=== PATIENT | female | born 1990 | race Caucasian/White ===

== ENCOUNTER 2017-02-02 08:27 | Emergency (ER) | payer OTHER ==
[~2017-02-02] VITALS: Ht 165.1 cm; Wt 84.0 kg
[~2017-02-02 08:27] MED LIST: AMOXICILLIN500 MG PO; CRYSELLE-2828 TABS PO; FERROUS SULF325 M3 PO; IBUPROFEN600 MG PO; LORTAB 5/3255 MG PO; MACRODANTIN100 MG PO; MOTRIN800 MG PO; NO; PRENATA9 PO; PROMETHAZINE25 MG PO; TORADOL PO; ULTRAM50 M1 PO; ZOFRAN ODT8 MG PO
[2017-02-02 09:09] LABS: HEMATOCRIT 39.6 % (37.0-47.0); IMMATURE GRANULOCYTES 0.3 % (0.0-1.0); MEAN CELL VOLUME 89.6 fL CALC (80.0-100.0); MEAN CORPUSCULAR HGB 29.4 pG CALC (26.0-32.0); MEAN CORPUSCULAR HGB CONC 32.8 g/L CALC (32.0-36.0); NEUT# 8.73 thou/uL (2.00-7.15); RED BLOOD COUNT 4.42 mill/uL (4.20-5.60); RED CELL DISTRI WIDTH 12.5 % (11.5-15.5)
[2017-02-02 09:18] LABS: ALBUMIN 4.1 g/dL (3.2-5.0); ALKALINE PHOSPHATASE 79 u/l (38-126); AMYLASE 44 u/l (30-110); ANION GAP 13 (6-22 (CALC)); BILIRUBIN, TOTAL 0.8 mg/dL (0.0-1.4); BUN 11 mg/dL (7-17); BUN/CREATININE RATIO 15 (12-20 (CALC)); CALCIUM 10.1 mg/dL (8.4-10.2); CARBON DIOXIDE 28 mmol/l (22-30); CHLORIDE 102 mmol/l (95-108); CREATININE 0.7 mg/dL (0.5-1.0); GFR > 60 ML/MIN (>=60 (CALC)); GFR FOR AFR.AMER. > 60 ML/MIN (>=60 (CALC)); GLUCOSE 92 mg/dL (65-105); LIPASE 39 u/l (23-300); POTASSIUM 3.6 mmol/l (3.5-5.1); SGOT/AST 65 u/l (14-36); SGPT/ALT 50 u/l (9-52); SODIUM 140 mmol/l (137-146); TOTAL PROTEIN 7.4 g/dL (6.3-8.2)
[2017-02-02 09:26] LABS: MYOGLOBIN 28 ng/mL (0 - 62)
[2017-02-02 11:01] LABS: URINE BILIRUBIN - DIPSTICK NEGATIVE (NEGATIVE); URINE BLOOD DIPSTICK NEGATIVE (NEGATIVE); URINE CLARITY CLEAR; URINE COLOR YELLOW; URINE GLUCOSE - DIPSTICK NEGATIVE (NEGATIVE); URINE KETONE NEGATIVE (NEGATIVE); URINE LEUK ESTERASE NEGATIVE (NEGATIVE); URINE NITRITE - DIPSTICK NEGATIVE (Negative); URINE PROTEIN - DIPSTICK NEGATIVE (NEG-TRACE)
[2017-02-02] MEDS ORDERED: NORCO1 TA1 PO (11:32)
[2017-02-02 11:41] VITALS: BP 125/87
== END 2017-02-02 11:47 | disposition home or self-care (01) | DRG 446 ==
LOC: ED 08:27
PROVIDERS: Emergency Medicine
DX: K80.50 Calculus of bile duct without cholangitis or cholecystitis without obstruction (principal); R06.02 Shortness of breath; R10.13 Epigastric pain; R07.9 Chest pain, unspecified
CPT/HCPCS: Q9967

== ENCOUNTER 2017-04-30 02:57 | Emergency (ER) | payer OTHER ==
[~2017-04-30] VITALS: Ht 165.1 cm; Wt 95.0 kg
[~2017-04-30 02:57] MED LIST changes: +NORCO1 TA1 PO
[2017-04-30] MEDS ORDERED: PRENATA3 PO (03:06)
[2017-04-30 04:00] LABS: URINE BLOOD DIPSTICK NEGATIVE (NEGATIVE); URINE CLARITY SLIGHT CLOUDY; URINE COLOR YELLOW; URINE GLUCOSE - DIPSTICK NEGATIVE (NEGATIVE); URINE KETONE NEGATIVE (NEGATIVE); URINE LEUK ESTERASE NEGATIVE (NEGATIVE); URINE NITRITE - DIPSTICK NEGATIVE (Negative); URINE PH 6.5 (4.5-8.0); URINE PROTEIN - DIPSTICK NEGATIVE (NEG-TRACE)
[2017-04-30 04:01] LABS: URINE BILIRUBIN - DIPSTICK SMALL (NEGATIVE)
[2017-04-30 04:03] LABS: HEMATOCRIT 34.6 % (37.0-47.0); HEMOGLOBIN 11.9 g/dl (12.0-16.0); IMMATURE GRANULOCYTES 0.5 % (0.0-1.0); MEAN CELL VOLUME 88.9 fL CALC (80.0-100.0); MEAN CORPUSCULAR HGB 30.6 pG CALC (26.0-32.0); MEAN CORPUSCULAR HGB CONC 34.4 g/L CALC (32.0-36.0); NEUT# 11.97 thou/uL (2.00-7.15); RED BLOOD COUNT 3.89 mill/uL (4.20-5.60); RED CELL DISTRI WIDTH 12.7 % (11.5-15.5)
[2017-04-30 04:13] LABS: ALBUMIN 3.8 g/dL (3.2-5.0); ALKALINE PHOSPHATASE 93 u/l (38-126); AMYLASE 33 u/l (30-110); ANION GAP 14 (6-22 (CALC)); BILIRUBIN, TOTAL 0.5 mg/dL (0.0-1.4); BUN 6 mg/dL (7-17); BUN/CREATININE RATIO 12 (12-20 (CALC)); CALCIUM 9.3 mg/dL (8.4-10.2); CARBON DIOXIDE 23 mmol/l (22-30); CHLORIDE 106 mmol/l (95-108); CREATININE 0.5 mg/dL (0.5-1.0); GFR > 60 ML/MIN (>=60 (CALC)); GFR FOR AFR.AMER. > 60 ML/MIN (>=60 (CALC)); GLUCOSE 79 mg/dL (65-105); LIPASE 28 u/l (23-300); POTASSIUM 3.8 mmol/l (3.5-5.1); SGOT/AST 18 u/l (14-36); SGPT/ALT 32 u/l (9-52); SODIUM 139 mmol/l (137-146); TOTAL PROTEIN 6.6 g/dL (6.3-8.2)
[2017-04-30 13:21] VITALS: BP 119/58
== END 2017-04-30 13:21 | disposition short-term general hospital (02) | DRG 781 ==
LOC: ED 02:57
PROVIDERS: Emergency Medicine
DX: O26.892 Other specified pregnancy related conditions, second trimester (principal); F17.210 Nicotine dependence, cigarettes, uncomplicated; R10.31 Right lower quadrant pain; O99.332 Smoking (tobacco) complicating pregnancy, second trimester; Z3A.15 15 weeks gestation of pregnancy

== ENCOUNTER 2017-10-23 07:40 | Inpatient (IN) | payer OTHER ==
[2017-10-23] VITALS (25 sets, daily range): BP systolic 99–140; BP diastolic 51–72
[~2017-10-23] VITALS: Ht 165.1 cm; Wt 96.6 kg
[~2017-10-23 07:40] MED LIST changes: +FERR SULFATE325 MG PO; +PRENATA3 PO
--- NOTE | 2017-10-23 07:50 | NUR ---
PT ARRIVED FROM HOME FOR NST WITH THE POSSIBILITY OF INDUCTION TODAY. HEIGHT/WEIGHT/UA/DOA OBTAINED. ASSISTED TO BED, EFM STARTED.
--- NOTE | 2017-10-23 08:12 | NUR ---
DR. GONZALES AT BEDSIDE, SVE DONE, -%/-3. MD DISCUSSED WITH PT ABOUT EITHER BEING INDUCED, OR GOING HOME AND WAIT FOR SPONTENAOUS LABOR, INCLUDING RISKS WITH INDUCTION. PT VERBALIZED UNDERSTANDING AND WISHES TO PROCEED WITH INDUCTION OF LABOR.
[2017-10-23 08:21] LABS: URINE BILIRUBIN - DIPSTICK NEGATIVE (NEGATIVE); URINE BLOOD DIPSTICK NEGATIVE (NEGATIVE); URINE COLOR YELLOW; URINE GLUCOSE - DIPSTICK NEGATIVE (NEGATIVE); URINE KETONE NEGATIVE (NEGATIVE); URINE NITRITE - DIPSTICK NEGATIVE (Negative); URINE PROTEIN - DIPSTICK NEGATIVE (NEG-TRACE); URINE SPECIFIC GRAVITY 1.025; URINE UROBILINOGEN - DIPSTICK 0.2 E.U./dL (0.2)
[2017-10-23 08:23] LABS: BARBITURATES NEGATIVE (NEGATIVE); COCAINE NEGATIVE (NEGATIVE); METHADONE NEGATIVE (NEGATIVE); OXCYCODONE NEGATIVE (NEGATIVE); TETRAHYDROCANNABIONOL NEGATIVE (NEGATIVE); TRICYLIC ANTIDEPRESSANTS NEGATIVE (NEGATIVE)
[2017-10-23 08:32] LABS: URINE CLARITY SL CLOUDY; URINE LEUK ESTERASE SMALL (NEGATIVE)
--- NOTE | 2017-10-23 08:35 | NUR ---
18G IV STARTED ON LEFT WRIST, LABS DRAWN. PT TOLERATED PROCEDURE WELL.
[2017-10-23 08:44] LABS: URINE BACTERIA MANY hpf; URINE SQUAMOUS EPITHELIAL CELL MODERATE EPI/hpf (0-FEW)
--- NOTE | 2017-10-23 08:53 | NUR ---
LR BOLUS STARTED PER ORDER.
[2017-10-23 09:01] LABS: HEMATOCRIT 32.3 % (37.0-47.0); HEMOGLOBIN 10.8 g/dl (12.0-16.0); IMMATURE GRANULOCYTES 0.6 % (0.0-1.0); MEAN CELL VOLUME 91.5 fL CALC (80.0-100.0); MEAN CORPUSCULAR HGB 30.6 pG CALC (26.0-32.0); MEAN CORPUSCULAR HGB CONC 33.4 g/L CALC (32.0-36.0); NEUT# 8.51 thou/uL (2.00-7.15); RED BLOOD COUNT 3.53 mill/uL (4.20-5.60); RED CELL DISTRI WIDTH 13.2 % (11.5-15.5)
--- NOTE | 2017-10-23 09:06 | NUR ---
PITOCIN STARTED AT 2 MU/MIN PER ORDER. TEACHING DONE WITH PT, PT VERBALIZED UNDERSTANDING.
[2017-10-23 09:30] LABS: ALBUMIN 3.2 g/dL (3.2-5.0); ALKALINE PHOSPHATASE 215 u/l (38-126); ANION GAP 13 (6-22 (CALC)); BILIRUBIN, TOTAL 0.3 mg/dL (0.0-1.4); BUN 9 mg/dL (7-17); BUN/CREATININE RATIO 15 (12-20 (CALC)); CALCIUM 9.4 mg/dL (8.4-10.2); CARBON DIOXIDE 20 mmol/l (22-30); CHLORIDE 110 mmol/l (95-108); CREATININE 0.6 mg/dL (0.5-1.0); GFR > 60 ML/MIN (>=60 (CALC)); GFR FOR AFR.AMER. > 60 ML/MIN (>=60 (CALC)); GLUCOSE 73 mg/dL (65-105); POTASSIUM 4.1 mmol/l (3.5-5.1); SGOT/AST 16 u/l (14-36); SGPT/ALT 20 u/l (9-52); SODIUM 139 mmol/l (137-146); TOTAL PROTEIN 5.9 g/dL (6.3-8.2)
--- NOTE | 2017-10-23 09:38 | NUR ---
PT UP TO BATHROOM, VOIDED 100ML DARK YELLOW URINE, THEN TO RECLINER.
--- NOTE | 2017-10-23 09:40 | NUR ---
PITOCIN INCREASED TO 4 MU/MIN PER ORDER.
--- NOTE | 2017-10-23 10:11 | NUR ---
PT SITTING UP ON RECLINER, TALKING ON THE PHONE WITH FAMILY. PITOCIN REMAINS AT 4 MU/MIN. DENIES ANY NEEDS.
--- NOTE | 2017-10-23 10:20 | NUR ---
300ML OF LR BOLUS STARTED TO BETTER ASSESS POSSIBLE TACHYSYSTOLE PATTERN.
--- NOTE | 2017-10-23 10:45 | NUR ---
IVF DONE INFUSING, RATE BACK TO 125ML/H.
--- NOTE | 2017-10-23 11:00 | NUR ---
PT UP TO BATHROOM, VOIDED 150ML CLEAR YELLOW URINE, THEN TO BED ON RIGHT LATERAL POSITION. RATES PAIN 5 OUT OF 10 TO LOWER BACK, DENIES NEED FOR PAIN MEDICATION.
--- NOTE | 2017-10-23 11:24 | NUR ---
PT SWITCHED FROM RIGHT LATERAL TO LEFT LATERAL DUE TO DIFFICULTY PICKING UP CONTRACTIONS AND FHR DESPITE MULTIPLE ADJUSTMENTS WITH TOCO AND US. WILL CONTINUE TO MONITOR.
--- NOTE | 2017-10-23 12:00 | NUR ---
PT UP TO BATHROOM, VOIDED 150ML CLEAR YELLOW URINE, THEN TO RECLINER. VISITOR ARRIVED AND IS AT BEDSIDE. PITOCIN INCREASED TO 6 MU/MIN.
--- NOTE | 2017-10-23 13:03 | NUR ---
PT UP TO BATHROOM, VOIDED 200ML OF CLEAR YELLOW URINE, STANDING UP AT BEDSIDE, SWAYING SIDE TO SIDE.
--- NOTE | 2017-10-23 13:27 | NUR ---
PT UP TO BATHROOM, VOIDED 50ML CLEAR YELLOW URINE, THEN TO BED, ON LEFT TILT POSITION. BREATHING WITH CONTRACTIONS, PAIN IS 6 OUT OF 10. VISITORS AT BEDSIDE. WILL CONTINUE TO MONITOR.
--- NOTE | 2017-10-23 13:38 | NUR ---
DR. GONZALES AT BEDSIDE, SVE DONE, %/-2. AROM FOR CLEAR TO LIGHT PINK FLUID.
--- NOTE | 2017-10-23 14:10 | NUR ---
PT BREATHING WELL WITH EACH CONTRACTION. VISITORS AT BEDSIDE, SUPPORTING PT. PT DENIES NEED FOR PAIN MEDICATION AT THIS TIME.
--- NOTE | 2017-10-23 14:30 | NUR ---
PT UP TO BATHROOM, VOIDED 200ML CLEAR YELLOW URINE, THEN STANDING AT BEDSIDE.
--- NOTE | 2017-10-23 14:30 | NUR ---
PT TAKES DEEP BREATHS WITH EACH CONTRACTIONS AND PT BREATHING WELL. PT DENIES ANY NEEDS.
--- NOTE | 2017-10-23 14:48 | NUR ---
MONITORING SYSTEM SWITCHED TO TERA NOVII IN ATTEMPT TO BETTER HUMAN DEVELOPMENT PROFESSOR CONTRACTIONS AND FHR.
--- NOTE | 2017-10-23 15:05 | NUR ---
PT RECENTLY HAD EMESIS, REQUESTING PAIN MEDICATION. SVE DONE, UNCHANGED. NUBAIN GIVEN DURING CONTRACTION.
--- NOTE | 2017-10-23 15:18 | NUR ---
PITOCIN INCREASED TO 18MU/MIN AT THIS TIME.
--- NOTE | 2017-10-23 15:18 | NUR ---
PITOCIN INCREASED TO 8 MU/MIN.
--- NOTE | 2017-10-23 15:37 | NUR ---
PT RESTING BETWEEN CONTRACTIONS, REPORTS SOME RELIEF FROM NUBAIN. PT REPOSITIONING FREELY IN BED NOW THAT TERA IS ON. PT ON RIGHT LATERAL AT THIS TIME.
--- NOTE | 2017-10-23 16:00 | NUR ---
PT UP TO BATHROOM, VOIDED 150ML OF DARK YELLOW URINE, THEN TO RECLINER CHAIR. VISITORS HAVE LEFT, PT IS BY HERSELF. BREATHING WITH SOME CONTRACTIONS, COPING WELL. PITOCIN INCREASED TO 10 MU/MIN. WILL CONTINUE TO MONITOR.
--- NOTE | 2017-10-23 16:30 | NUR ---
PT RESTING IN RECLINER, ON HER LEFT SIDE, BREATHING HEAVY WITH CONTRACTIONS. PT ASKING QUESTIONS ABOUT EPIDURAL, EDUCATED PT, PT WILL DECIDE IF SHE WANTS ONE AND LET US KNOW. PT'S MOTHER IS BACK IN THE ROOM, SUPPORTING PT.
--- NOTE | 2017-10-23 16:53 | NUR ---
PT UP TO BATHROOM, VOIDED 100ML OF CLEAR YELLOW URINE, THEN TO BED ON RIGHT LATERAL.
--- NOTE | 2017-10-23 17:02 | NUR ---
PT REQUESTING NUBAIN, SVE DONE, 4-5/80%/-2. PT LAYING ON HER RIGHT LATERAL. NUBAIN GIVEN AT 1706 DURING CONTRACTION.
--- NOTE | 2017-10-23 17:45 | NUR ---
PT UP TO BATHROOM, VOIDED 100ML OF CLEAR YELLOW URINE, THEN STANDING AT BEDSIDE, BREATHING HEAVY WITH EACH CONTRACTION. FAMILY AT BEDSIDE.
--- NOTE | 2017-10-23 17:50 | NUR ---
LR BOLUS STARTED FOR VARIABLE DECELS.
--- NOTE | 2017-10-23 18:10 | NUR ---
LR BOLUS OF 300ML DONE INFUSING, RATE CHANGED TO 125ML/H.
--- NOTE | 2017-10-23 18:18 | NUR ---
DR. GONZALES AT BEDSIDE, SVE DONE, 7/100%/0. MD DISCUSSED WITH PT ABOUT GETTING EPIDURAL, BUT PT IS UNSURE AT THIS TIME. PT IS ON LEFT LATERAL POSITION.
--- NOTE | 2017-10-23 18:45 | NUR ---
REPORT GIVEN TO Lucio SYKES RN.
--- NOTE | 2017-10-23 19:00 | NUR ---
RECEIVED REPORT FROM Kindra LEWIS. PT. RECEIVED IN ACTIVE LABOR REQUESTING PAIN MED. AND HAVINGHEAVY BLOODY 'SHOW'. VE, CVX. 8/9CM. ON UNIT.LABOR SUPPORT IN PROGRESS.
--- NOTE | 2017-10-23 19:21 | NUR ---
SHAKIR GONZALES OF A LIVING MALE .PERINEUM INTACT. MOTHER AND BABY STABLE
[2017-10-24 04:19] VITALS: BP 121/58
--- NOTE | 2017-10-24 04:25 | NUR ---
BREAST AND FORMULA FEEDING . PT. SLEPT FAIRLY WELL DURING THE NIGHT. DENIES ANY PAIN. BOBDIND AND CARING FOR HER BABY WELL. REPEAT CBC DONE THIS A.M. AFEBRILE AND VOIDING W/O DIFFICULTY.
--- NOTE | 2017-10-24 07:35 | NUR ---
PT SERVED BREAKFAST, SITS QUIETLY IN BED.
[2017-10-24 07:55] LABS: IMMATURE GRANULOCYTES 0.4 % (0.0-1.0); MEAN CELL VOLUME 91.7 fL CALC (80.0-100.0); MEAN CORPUSCULAR HGB 30.6 pG CALC (26.0-32.0); MEAN CORPUSCULAR HGB CONC 33.3 g/L CALC (32.0-36.0); NEUT# 12.21 thou/uL (2.00-7.15); RED BLOOD COUNT 3.27 mill/uL (4.20-5.60)
--- NOTE | 2017-10-24 10:00 | NUR ---
PT STATES SHE HAS BEEN URINATING W/O PROBLEM, HAS BEEN DOING KING CARE.
--- NOTE | 2017-10-24 14:00 | NUR ---
DISCHARGE PLAN REVIEWED, PT ACKNOWLEDGES UNDERSTANDING.
--- NOTE | 2017-10-24 16:00 | NUR ---
PT HAS BEEN CARING FOR INFANT W/O PROBLEM. TALKS WITH VISITORS.
--- NOTE | 2017-10-24 17:50 | NUR ---
PT ASKED TO LEAVE UNIT TO GO TO [facility], PT SIGNS RELEASE OF LIABILITY. PT LEFT UNIT AMBULATORY WITH VISITOR FOR 10 MIN, RETURNED TO UNIT.
[2017-10-24 18:00] VITALS: BP 113/57
--- NOTE | 2017-10-24 18:15 | NUR ---
PT SITS QUIELTY IN BED, NO NEEDS AT THIS TIME.
--- NOTE | 2017-10-24 18:59 | NUR ---
REPORT TO ONCOMING NURSE.
--- NOTE | 2017-10-24 19:00 | NUR ---
RECEIVED REPORT FROM Maddie VAZQUEZ RN. PT. SITTING UP IN BED WITH . FAMILY MEMBERS VISITING. DENIES DISCOMFORT AT THIS TIME.
[2017-10-24 22:05] VITALS: BP 112/57
--- NOTE | 2017-10-25 07:20 | NUR ---
Received report from Dae Parisi RN.
--- NOTE | 2017-10-25 07:25 | NUR ---
PT IN SHOWER AT THIS TIME.
[2017-10-25 07:45] VITALS: BP 118/73
--- NOTE | 2017-10-25 07:45 | NUR ---
PT SITTING UP IN BED WATCHING TELEVISION. BREAKFAST TRAY GIVEN. ASSESSMENT CHARTED. PT WITH NO COMPLAINTS OF PAIN. DENIES S/S OF DEPRESSION. ENCOURAGED TO DRINK PLENTY FLUIDS AND AMBULATE. PLAN OF CARE REVIEWED. CERTIFICATE COMPLETED. PT VERBALIZES WATCHING DISCHARGE VIDEOS AND REVIEWING DISCHARGE PLANNING. PT WITH NO QUESTIONS AT THIS TIME. CALL LIGHT WITHIN REACH.
--- NOTE | 2017-10-25 08:00 | NUR ---
DR GONZALES IN TO SEE PT. RECEIVED NEW ORDERS.
[2017-10-25] MEDS ORDERED: IBUPROFEN600 MG PO (09:08)
--- NOTE | 2017-10-25 11:40 | NUR ---
Pt denies pain at this time. Call light within reach.
--- NOTE | 2017-10-25 13:00 | NUR ---
Discharge instructions given. Patient verbalizes understanding of same. Discharged in stable condition via Wheelchair to Home with significant other. All belongings sent with pt. Pt to call and schedule follow-up appt in 5 weeks with OB physician of her choice. Prescription for Motrin given. Pt instructed to review control options prior to appt.
== END 2017-10-25 13:00 | disposition home or self-care (01) | DRG 775 ==
LOC: OB 07:40
PROVIDERS: ADMIT Obstetrics & Gynecology; ATTEND Obstetrics & Gynecology
PROC: 10E0XZZ Delivery of Products of Conception, External Approach (ICD-10-PCS; principal; 2017-10-23)
PROC: 10907ZC Drainage of Amniotic Fluid, Therapeutic from Products of Conception, Via Natural or Artificial Opening (ICD-10-PCS; 2017-10-23)
PROC: 3E033VJ Introduction of Other Hormone into Peripheral Vein, Percutaneous Approach (ICD-10-PCS; 2017-10-23)
DX: O99.334 Smoking (tobacco) complicating childbirth (principal); E66.9 Obesity, unspecified; F17.210 Nicotine dependence, cigarettes, uncomplicated; O99.214 Obesity complicating childbirth; Z3A.40 40 weeks gestation of pregnancy; Z37.0 Single live birth

== ENCOUNTER 2018-06-15 13:08 | Emergency (ER) | payer OTHER ==
[~2018-06-15] VITALS: Ht 165.1 cm; Wt 92.4 kg
[2018-06-15 14:55] VITALS: BP 125/71
== END 2018-06-15 14:55 | disposition home or self-care (01) ==
LOC: ED 13:08
DX: M25.561 Pain in right knee (principal); F17.210 Nicotine dependence, cigarettes, uncomplicated; X50.0XXA Overexertion from strenuous movement or load, initial encounter; Y93.89 Activity, other specified; Y92.003 Bedroom of unspecified non-institutional (private) residence as the place of occurrence of the external cause

== ENCOUNTER 2018-10-14 10:09 | Emergency (ER) | payer SELFPAY ==
[~2018-10-14] VITALS: Ht 165.1 cm; Wt 100.0 kg
[2018-10-14] MEDS ORDERED: PERCOCET 5/325M1 TAB PO (10:46)
[2018-10-14] MEDS ORDERED: TORADOL PO (10:46)
[2018-10-14] MEDS ORDERED: SILVADENE1 % EX (10:47)
[2018-10-14 11:45] VITALS: BP 148/72
== END 2018-10-14 11:45 | disposition home or self-care (01) | DRG 935 ==
LOC: ED 10:09
PROC: 2W24X4Z Dressing of Chest Wall using Bandage (ICD-10-PCS; principal; 2018-10-14)
PROC: 2W22X4Z Dressing of Neck using Bandage (ICD-10-PCS; 2018-10-14)
DX: T20.27XA Burn of second degree of neck, initial encounter (principal); T21.11XA Burn of first degree of chest wall, initial encounter; T31.0 Burns involving less than 10% of body surface; F17.200 Nicotine dependence, unspecified, uncomplicated; X13.1XXA Other contact with steam and other hot vapors, initial encounter; Y93.G3 Activity, cooking and baking; Y92.89 Other specified places as the place of occurrence of the external cause; Y99.0 Civilian activity done for income or pay

== ENCOUNTER 2018-12-11 15:54 | Emergency (ER) | payer OTHER ==
[~2018-12-11] VITALS: Ht 165.1 cm; Wt 86.4 kg
[~2018-12-11 15:54] MED LIST changes: +PERCOCET 5/325M1 TAB PO; +SILVADENE1 % EX
[2018-12-11] MEDS ORDERED: MELOXICAM7.5 MG PO (16:04)
[2018-12-11 16:39] LABS: IMMATURE GRANULOCYTES 0.4 % (0.0-5.0); MEAN CELL VOLUME 87.2 fL CALC (80.0-100.0); MEAN CORPUSCULAR HGB 27.8 pG CALC (26.0-32.0); MEAN CORPUSCULAR HGB CONC 31.8 g/L CALC (32.0-36.0); NEUT# 6.34 thou/uL (2.00-7.15); RED BLOOD COUNT 4.86 mill/uL (4.20-5.60); RED CELL DISTRI WIDTH 13.9 % (11.5-15.5); URINE BLOOD DIPSTICK LARGE (NEGATIVE); URINE COLOR YELLOW; URINE GLUCOSE - DIPSTICK 100 mg/dL (NEGATIVE); URINE KETONE TRACE mg/dL (NEGATIVE); URINE LEUK ESTERASE NEGATIVE (NEGATIVE); URINE PH 6.5 (4.5-8.0); URINE PROTEIN - DIPSTICK 30 mg/dL (NEG-TRACE); URINE SPECIFIC GRAVITY 1.025
[2018-12-11 16:42] LABS: URINE BILIRUBIN - DIPSTICK MODERATE (NEGATIVE); URINE NITRITE - DIPSTICK POSITIVE (Negative)
[2018-12-11 17:00] LABS: ALKALINE PHOSPHATASE 129 u/l (38-126); BILIRUBIN, TOTAL 1.1 mg/dL (0.0-1.4); BUN 13 mg/dL (7-17); BUN/CREATININE RATIO 18 (12-20 (CALC)); CHLORIDE 105 mmol/l (95-108); CREATININE 0.7 mg/dL (0.5-1.0); GFR > 60 ML/MIN (>=60 (CALC)); GFR FOR AFR.AMER. > 60 ML/MIN (>=60 (CALC)); POTASSIUM 3.5 mmol/l (3.5-5.1); SODIUM 143 mmol/l (137-146)
[2018-12-11 17:02] LABS: HEMATOCRIT 42.4 % (37.0-47.0); HEMOGLOBIN 13.5 g/dl (12.0-16.0)
[2018-12-11 17:04] LABS: ALBUMIN 4.4 g/dL (3.2-5.0); ANION GAP 13 (6-22 (CALC)); CARBON DIOXIDE 29 mmol/l (22-30); SGOT/AST 173 u/l (14-36); TOTAL PROTEIN 7.2 g/dL (6.3-8.2)
[2018-12-11 17:07] LABS: URINE BACTERIA MODERATE hpf; URINE RBC 25-50 RBC/hpf (0-5); URINE SQUAMOUS EPITHELIAL CELL FEW EPI/hpf (0-FEW)
[2018-12-11 17:09] LABS: BARBITURATES NEGATIVE (NEGATIVE); COCAINE NEGATIVE (NEGATIVE); METHADONE NEGATIVE (NEGATIVE); OXCYCODONE POSITIVE (NEGATIVE); TETRAHYDROCANNABIONOL POSITIVE (NEGATIVE); TRICYLIC ANTIDEPRESSANTS NEGATIVE (NEGATIVE)
[2018-12-11] MEDS ORDERED: TYLENOL # 31 TAB PO (19:35)
[2018-12-11] MEDS ORDERED: BACTRIM DS1 TAB PO (19:35)
[2018-12-11 19:46] VITALS: BP 102/60
== END 2018-12-11 19:46 | disposition home or self-care (01) ==
LOC: ED 15:54
PROVIDERS: Emergency Medicine
DX: N39.0 Urinary tract infection, site not specified (principal); K80.20 Calculus of gallbladder without cholecystitis without obstruction; R11.2 Nausea with vomiting, unspecified; R19.7 Diarrhea, unspecified; R10.11 Right upper quadrant pain; F17.210 Nicotine dependence, cigarettes, uncomplicated; R10.811 Right upper quadrant abdominal tenderness

== ENCOUNTER 2019-03-04 09:45 | Emergency (ER) | payer OTHER ==
[~2019-03-04] VITALS: Ht 165.1 cm; Wt 90.0 kg
[~2019-03-04 09:45] MED LIST changes: +BACTRIM DS1 TAB PO; +MELOXICAM7.5 MG PO; +TYLENOL # 31 TAB PO
[2019-03-04] MEDS ORDERED: TORADOL PO (10:00)
[2019-03-04 10:32] LABS: HEMATOCRIT 41.1 % (37.0-47.0); IMMATURE GRANULOCYTES 0.4 % (0.0-5.0); MEAN CELL VOLUME 89.7 fL CALC (80.0-100.0); MEAN CORPUSCULAR HGB 28.4 pG CALC (26.0-32.0); MEAN CORPUSCULAR HGB CONC 31.6 g/L CALC (32.0-36.0); NEUT# 10.76 thou/uL (2.00-7.15); RED BLOOD COUNT 4.58 mill/uL (4.20-5.60); RED CELL DISTRI WIDTH 12.8 % (11.5-15.5)
[2019-03-04 11:58] LABS: ALKALINE PHOSPHATASE 91 u/l (38-126); ANION GAP 14 (6-22 (CALC)); BILIRUBIN, TOTAL 0.6 mg/dL (0.0-1.4); BUN 10 mg/dL (7-17); BUN/CREATININE RATIO 16 (12-20 (CALC)); CARBON DIOXIDE 23 mmol/l (22-30); CHLORIDE 110 mmol/l (95-108); CREATININE 0.6 mg/dL (0.5-1.0); GFR > 60 ML/MIN (>=60 (CALC)); GFR FOR AFR.AMER. > 60 ML/MIN (>=60 (CALC)); LIPASE 47 u/l (23-300); POTASSIUM 4.2 mmol/l (3.5-5.1); SODIUM 143 mmol/l (137-146)
[2019-03-04 11:59] LABS: ALBUMIN 3.5 g/dL (3.2-5.0); SGOT/AST 42 u/l (14-36)
[2019-03-04 12:45] LABS: URINE BLOOD DIPSTICK LARGE (NEGATIVE); URINE GLUCOSE - DIPSTICK NEGATIVE (NEGATIVE); URINE KETONE 15 mg/dL (NEGATIVE); URINE LEUK ESTERASE NEGATIVE (NEGATIVE); URINE NITRITE - DIPSTICK NEGATIVE (Negative); URINE PROTEIN - DIPSTICK NEGATIVE (NEG-TRACE); URINE SPECIFIC GRAVITY 1.025; URINE UROBILINOGEN - DIPSTICK 0.2 E.U./dL (0.2)
[2019-03-04 12:48] LABS: URINE BILIRUBIN - DIPSTICK SMALL (NEGATIVE); URINE COLOR DK. YELLOW
[2019-03-04 12:50] LABS: URINE EPITHELIAL CELLS FEW EPI/hpf (0-FEW); URINE MUCUS MODERATE hpf (NONE-FEW)
[2019-03-04] MEDS ORDERED: ZOFRAN ODT4 MG PO (12:54)
[2019-03-04 13:00] VITALS: BP 129/73
== END 2019-03-04 13:08 | disposition home or self-care (01) ==
LOC: ED 09:45
PROVIDERS: Family Medicine
DX: R11.2 Nausea with vomiting, unspecified (principal); F17.200 Nicotine dependence, unspecified, uncomplicated; R10.84 Generalized abdominal pain; R11.10 Vomiting, unspecified; Z90.49 Acquired absence of other specified parts of digestive tract
CPT/HCPCS: Q9967

== ENCOUNTER 2019-03-06 03:32 | Emergency (ER) | payer OTHER ==
[~2019-03-06] VITALS: Ht 165.1 cm; Wt 83.1 kg
[~2019-03-06 03:32] MED LIST changes: +ZOFRAN ODT4 MG PO
[2019-03-06 04:06] LABS: HEMATOCRIT 36.7 % (37.0-47.0); IMMATURE GRANULOCYTES 0.4 % (0.0-5.0); MEAN CELL VOLUME 87.6 fL CALC (80.0-100.0); MEAN CORPUSCULAR HGB 28.6 pG CALC (26.0-32.0); MEAN CORPUSCULAR HGB CONC 32.7 g/L CALC (32.0-36.0); NEUT# 6.05 thou/uL (2.00-7.15); RED BLOOD COUNT 4.19 mill/uL (4.20-5.60); RED CELL DISTRI WIDTH 12.7 % (11.5-15.5)
[2019-03-06 04:21] LABS: ALBUMIN 3.8 g/dL (3.2-5.0); ALKALINE PHOSPHATASE 87 u/l (38-126); AMYLASE 39 u/l (30-110); BUN 11 mg/dL (7-17); BUN/CREATININE RATIO 14 (12-20 (CALC)); CHLORIDE 100 mmol/l (95-108); CREATININE 0.7 mg/dL (0.5-1.0); GFR > 60 ML/MIN (>=60 (CALC)); GFR FOR AFR.AMER. > 60 ML/MIN (>=60 (CALC)); LIPASE 57 u/l (23-300); POTASSIUM 3.6 mmol/l (3.5-5.1); SGOT/AST 53 u/l (14-36); SODIUM 142 mmol/l (137-146); TOTAL PROTEIN 6.4 g/dL (6.3-8.2)
[2019-03-06 04:22] LABS: ANION GAP 12 (6-22 (CALC)); BILIRUBIN, TOTAL 0.9 mg/dL (0.0-1.4); CARBON DIOXIDE 34 mmol/l (22-30)
[2019-03-06 06:33] LABS: URINE BLOOD DIPSTICK NEGATIVE (NEGATIVE); URINE COLOR YELLOW; URINE GLUCOSE - DIPSTICK NEGATIVE (NEGATIVE); URINE KETONE NEGATIVE (NEGATIVE); URINE LEUK ESTERASE NEGATIVE (NEGATIVE); URINE NITRITE - DIPSTICK NEGATIVE (Negative); URINE PROTEIN - DIPSTICK 100 mg/dL (NEG-TRACE)
[2019-03-06 06:35] LABS: URINE BILIRUBIN - DIPSTICK SMALL (NEGATIVE)
[2019-03-06 06:42] LABS: BARBITURATES NEGATIVE (NEGATIVE); COCAINE NEGATIVE (NEGATIVE); METHADONE NEGATIVE (NEGATIVE); OXCYCODONE NEGATIVE (NEGATIVE); TETRAHYDROCANNABIONOL NEGATIVE (NEGATIVE); TRICYLIC ANTIDEPRESSANTS NEGATIVE (NEGATIVE)
[2019-03-06] MEDS ORDERED: PHENERGAN25 MG RE (06:47)
[2019-03-06 06:51] VITALS: BP 164/95
[2019-03-06 07:03] LABS: URINE BACTERIA FEW hpf
[2019-03-06 07:04] LABS: URINE AMORPH SEDIMENT MANY hpf (NONE-FEW)
== END 2019-03-06 06:57 | disposition home or self-care (01) ==
LOC: ED 03:32
PROVIDERS: Family Medicine
DX: R11.2 Nausea with vomiting, unspecified (principal); Z90.49 Acquired absence of other specified parts of digestive tract; F17.210 Nicotine dependence, cigarettes, uncomplicated
CPT/HCPCS: J0131

== ENCOUNTER 2019-11-02 | Emergency (ER) | payer MEDICAID ==
[~2019-11-02] MED LIST changes: +PHENERGAN25 MG RE
[2019-11-02] MEDS ORDERED: AMOXICILLIN500 MG PO (12:32)
== END 2019-11-02 13:09 | disposition home or self-care (01) ==
DX: J03.90 Acute tonsillitis, unspecified (principal); F17.210 Nicotine dependence, cigarettes, uncomplicated